=== PATIENT | female | born 1985 | race Caucasian/White ===

== ENCOUNTER 2017-08-01 19:07 | Observation (INO) | payer SELFPAY ==
[~2017-08-01] VITALS: Ht 162.6 cm; Wt 83.5 kg
[~2017-08-01 19:07] MED LIST: ONDANSETRON HCL 4 MG/2 ML VIAL IV PUSH ONE; PROPOFOL 200 MG/20 ML AMP IV ONE; Z.0.NO CURRENT MEDS
[2017-08-01 19:33] VITALS: BP 157/89; PULSE 79; RESP 18; TEMP 98.6; O2SAT 99
[2017-08-01 20:24] LABS: BLOOD, URINE LARGE (NEG); GLUCOSE,URINE NEG (NEG); KETONE, URINE 15 mg/dL (NEG); NITRITE,URINE NEG (NEG)
[2017-08-01 20:42] LABS: METHOD OF COLLECTION CLEAN CATCH
[2017-08-01 20:43] LABS: URINE COLOR YELLOW (YELLW/STRAW)
[2017-08-01 20:44] LABS: COMMENT (UR) CULT NOT INDICATED; CULTURE IF INDICATED CULT NOT INDICATED; WBC, URINE 0-2 /hpf (0-5)
[2017-08-01] MEDS ORDERED: SODIUM CHLOR 0.9% 1000 ML INJ 1,000 ML IV SCH (21:51)
--- NOTE | 2017-08-01 21:56 | PD ---
HPI . Right-sided abdominal pain Chief Complaint: Complaint Time Seen by Provider: 21:48 Travel History International Travel<30 days: No Contact w/Intl Traveler<30days: No Traveled to known affect area: No History of Present Illness HPI Patient presents with a chief complaint of right-sided abdominal pain. It is associated with nausea and vomiting. It was earlier today after lunch. Pain has persisted. She rates the pain 4/10. No exacerbating or relieving factors. She has tried [id number] analgesics and Pepto-Bismol. She denies any urinary tract symptoms such as dysuria, frequency or urgency. She denies diarrhea. PFSH Past Medical History Cancer: No Cardiovascular Problems: No Diminished Hearing: No Endocrine: No Genitourinary: No Musculoskeletal: No Neurologic: No Reproductive: No Respiratory: No Immunizations Current: No Tetanus Vaccination: Unknown Influenza Vaccination: No ?: Not LMP: 07/10/17 Social History Alcohol Use: Yes (SOCIAL) Tobacco Use: Yes (1/2 PPD) Substance Use: No Allergies-Medications (Allergen,Severity, Reaction): Coded Allergies: Sulfa (Sulfonamide Antibiotics) (Verified Allergy, Unknown, Hives, ) Reported Meds & Prescriptions Reported Meds & Active Scripts Active No Active Prescriptions or Reported Medications Review of Systems Except as stated in HPI: all other systems reviewed are Neg General / Constitutional: No: Fever, Chills Gastrointestinal: Positive: Nausea, Vomiting, Abdominal Pain, No: Diarrhea Genitourinary: No: Urgency, Frequency, Dysuria, Flank Pain Physical Exam Narrative GENERAL: Awake and alert. SKIN: warm/dry. No rashes or lesions. HEAD: Normocephalic. Atraumatic. EYES: Pupils equal and round. No scleral icterus. No injection or drainage. ENT: No nasal bleeding or discharge. Mucous membranes pink and moist. NECK: Trachea midline. Full range of motion without pain.. CARDIOVASCULAR: Regular rate and rhythm. Heart sounds normal. RESPIRATORY: No accessory muscle use. Clear to auscultation. Breath sounds equal bilaterally. GASTROINTESTINAL: Abdomen soft. I was able to elicit some tenderness under the right rib. She also has tenderness in the right lower quadrant. She does not have any CVA tenderness. Bowel sounds present. Nondistended. MUSCULOSKELETAL: No obvious deformities. NEUROLOGICAL: Awake and alert. No obvious cranial nerve deficits. Motor grossly within normal limits. Normal speech. PSYCHIATRIC: Appropriate mood and affect; insight and judgment normal. Data Data Last Documented VS Vital Signs Date Time Temp Pulse Resp B/P (MAP) Pulse Ox O2 Delivery O2 Flow Rate FiO2 08/01/17 22:43 77 16 137/80 (99) 95 Room Air 08/01/17 19:33 98.6 Orders Orders Urinalysis - C+S If Indicated (08/01/17 19:39) Ed Urine Pregnancytest Poc (08/01/17 19:39) Ct Abd/Pel W/O Iv Contrast (08/01/17 21:04) Complete Blood Count With Diff (08/01/17 21:51) Comprehensive Metabolic Panel (08/01/17 21:51) Lipase (08/01/17 21:51) Lactic Acid (08/01/17 21:51) Iv Access Insert/Monitor (08/01/17 21:51) Morphine Inj (Morphine Inj) (08/01/17 22:00) Ondansetron Inj (Zofran Inj) (08/01/17 22:00) Sodium Chlor 0.9% 1000 Ml Inj (Ns 1000 M (08/01/17 21:51) Sodium Chloride 0.9% Flush (Ns Flush) (08/01/17 22:00) Piperacil-Tazo 3.375 Gm Premix (Zosyn 3. (08/01/17 23:00) Electrocardiogram (08/01/17 ) Admit Order (Ed Use Only) (08/01/17 23:29) Labs Laboratory Tests Test 08/01/17 19:40 08/01/17 22:25 Urine Collection Type CLEAN CATCH Urine Color YELLOW Urine Turbidity CLOUDY Urine pH 7.0 Urine Specific [place] 1.018 Urine Protein NEG mg/dL Urine Glucose (UA) NEG mg/dL Urine Ketones 15 mg/dL Urine Occult Blood LARGE Urine Nitrite NEG Urine Bilirubin NEG Urine Leukocyte Esterase NEG Urine RBC 10-14 /hpf Urine WBC 0-2 /hpf Urine Squamous Epithelial Cells 3-5 /hpf Urine Amorphous Sediment MOD Microscopic Urinalysis Comment CULT NOT INDICATED White Blood Count 23.9 TH/MM3 Red Blood Count 4.86 MIL/MM3 Hemoglobin 13.7 GM/DL Hematocrit 41.5 % Mean Corpuscular Volume 85.5 FL Mean Corpuscular Hemoglobin 28.3 PG Mean Corpuscular Hemoglobin Concent 33.1 % Red Cell Distribution Width 13.4 % Platelet Count 366 TH/MM3 Mean Platelet Volume 8.4 FL Neutrophils (%) (Auto) 95.2 % Lymphocytes (%) (Auto) 2.7 % Monocytes (%) (Auto) 0.9 % Eosinophils (%) (Auto) 0.0 % Basophils (%) (Auto) 1.2 % Neutrophils # (Auto) 22.8 TH/MM3 Lymphocytes # (Auto) 0.6 TH/MM3 Monocytes # (Auto) 0.2 TH/MM3 Eosinophils # (Auto) 0.0 TH/MM3 Basophils # (Auto) 0.3 TH/MM3 CBC Comment AUTO DIFF Differential Total Cells Counted 100 Neutrophils % (Manual) 87 % Band Neutrophils % 3 % Lymphocytes % 6 % Monocytes % 4 % Neutrophils # (Manual) 21.5 TH/MM3 Differential Comment FINAL DIFF MANUAL Platelet Estimate NORMAL Platelet Morphology Comment NORMAL Blood Urea Nitrogen 7 MG/DL Creatinine 0.66 MG/DL Random Glucose 130 MG/DL Total Protein 7.9 GM/DL Albumin 4.0 GM/DL Calcium Level 8.8 MG/DL Alkaline Phosphatase 116 U/L Aspartate Amino Transf (AST/SGOT) 9 U/L Alanine Aminotransferase (ALT/SGPT) 24 U/L Total Bilirubin 0.4 MG/DL Sodium Level 136 MEQ/L Potassium Level 3.4 MEQ/L Chloride Level 102 MEQ/L Carbon Dioxide Level 26.5 MEQ/L Anion Gap 8 MEQ/L Estimat Glomerular Filtration Rate 103 ML/MIN Lactic Acid Level 1.0 mmol/L Lipase 107 U/L [facility] Medical Decision Making Medical Screen Exam Complete: Yes Emergency Medical Condition: Yes Differential Diagnosis Differential diagnosis of flank pain includes but is not limited to kidney stone , pyelonephritis, musculoskeletal pain, PE Narrative Course This patient presents with right-sided abdominal pain. CT scan has been ordered to rule out kidney stone or appendicitis. CBC & BMP Diagram 08/01/17 22:25 Total Protein 7.9, Albumin 4.0, Calcium Level 8.8, Alkaline Phosphatase 116, Aspartate Amino Transf (AST/SGOT) 9 L, Alanine Aminotransferase (ALT/SGPT) 24, Total Bilirubin 0.4 Lactic acid level is 1.0. UA>>large blood, 10-[address]: 1. Distended appendix with early periappendiceal stranding and appendicolith at the base all suggesting early appendicitis. 2. 2.7 cm right adnexal cyst Physician Communication Physician Communication Dr. Huddleston Diagnosis Primary Impression: Appendicitis Qualified Codes: K35.3 - Acute appendicitis with localized peritonitis Admitting Information Admitting Physician Requests: Observation Scripts No Active Prescriptions or Reported Meds Condition: Stable Asha Bello MD Aug 01, 2017 21:56
[2017-08-01] MEDS ORDERED: ONDANSETRON HCL 4 MG/2 ML VIAL IVP ONE (22:00)
[2017-08-01] MEDS ORDERED: SODIUM CHLORIDE 0.9% FLUSH 10 ML FLUSH IV FLUSH PRN (22:00)
[2017-08-01] MEDS ORDERED: MORPHINE SULFATE 4 MG/ML INJ IV PUSH ONE (22:00)
[2017-08-01 22:32] LABS: AUTOMATED NEUTROPHIL # 22.8 TH/MM3 (1.8-7.7); BASOPHIL # 0.3 TH/MM3 (0-0.2); BASOPHIL % 1.2 % (0.0-2.0); HEMATOCRIT 41.5 % (35.0-46.0); LYMPH % 2.7 % (9.0-44.0); LYMPHOCYTE # 0.6 TH/MM3 (1.0-4.8); MEAN CELL VOLUME 85.5 FL (80.0-100.0); MEAN CORPUSCULAR HEMOGLOBIN 28.3 PG (27.0-34.0); MEAN CORPUSCULAR HGB CONC 33.1 % (32.0-36.0); MONO % 0.9 % (0.0-8.0); NEUT % 95.2 % (16.0-70.0); PLATELET COUNT 366 TH/MM3 (150-450); RED BLOOD COUNT 4.86 MIL/MM3 (4.00-5.30); RED CELL DISTRIBUTION WIDTH 13.4 % (11.6-17.2); WHITE BLOOD COUNT 23.9 TH/MM3 (4.0-11.0)
[2017-08-01 22:38] LABS: HEMO FLAGS AUTO DIFF
[2017-08-01 22:40] LABS: CHLORIDE 102 MEQ/L (98-107); POTASSIUM 3.4 MEQ/L (3.5-5.1); SODIUM (NA) 136 MEQ/L (136-145)
[2017-08-01 22:43] VITALS: BP 137/80; PULSE 77; RESP 16; O2SAT 95
[2017-08-01 22:45] LABS: ANION GAP 8 MEQ/L (5-15); BICARBONATE 26.5 MEQ/L (21.0-32.0); BLOOD UREA NITROGEN 7 MG/DL (7-18)
[2017-08-01 22:47] LABS: ALT (GPT) 24 U/L (10-53)
--- NOTE | 2017-08-01 22:47 | RADRPT ---
EXAM DATE/TIME: 08/01/2017 21:53 [facility] COMPARISON: No previous studies available for comparison. INDICATIONS : Right flank pain with nausea and vomiting. ORAL CONTRAST: No oral contrast ingested. RADIATION DOSE: 21.57 CTDIvol (mGy) MEDICAL HISTORY : Renal calculi. SURGICAL HISTORY : None. ENCOUNTER: Initial ACUITY: 1 day PAIN SCALE: 4/10 LOCATION: Right flank TECHNIQUE: Volumetric scanning of the abdomen and pelvis was performed. Using automated exposure control and ad justment of the mA and/or kV according to patient size, radiation dose was kept as low as reasonably achievable to obtain optimal diagnostic quality images. DICOM format image data is available electro nically for review and comparison. FINDINGS: LOWER LUNGS: The visualized lower lungs are clear. LIVER: Homogeneous density without lesion. There is no dilation of the biliary tree. No calcified gallston es. SPLEEN: Normal size without lesion. PANCREAS: Within normal limits. KIDNEYS: Normal in size and shape. There is no mass, stone, or hydronephrosis. ADRENAL GLANDS: Within normal limits. VASCULAR: There is no aortic aneurysm. BOWEL/MESENTERY: The appendix is distended measuring 1.2 cm in diameter. No appendicolith is seen at the base of the a ppendix. Minimal periappendiceal stranding is seen at the tip of the appendix. The stomach, small bow el, and colon demonstrate no acute abnormality. There is no free intraperitoneal air or fluid. ABDOMINAL WALL: Within normal limits. RETROPERITONEUM: There is no lymphadenopathy. BLADDER: No wall thickening or mass. REPRODUCTIVE: A 2.7 cm cyst is identified in the right adnexa. Within normal limits. INGUINAL: There is no lymphadenopathy or hernia. MUSCULOSKELETAL: Within normal limits for patient age. CONCLUSION: 1. Distended appendix with early periappendiceal stranding and appendicolith at the base all suggesti ng early appendicitis. 2. 2.7 cm right adnexal cyst Judson Haq MD on August 01, 2017 at 22:40 Board Certified Radiologist. This report was verified electronically.
[2017-08-01 22:48] LABS: AST (GOT) 9 U/L (15-37); GLOMERULAR FILTRATION RATE 103 ML/MIN (>89)
[2017-08-01 22:49] LABS: TOTAL BILIRUBIN ADULT 0.4 MG/DL (0.2-1.0)
[2017-08-01 22:50] LABS: ALKALINE PHOSPHATASE 116 U/L (45-117)
[2017-08-01 22:58] LABS: BANDS 3 % (0-6); NEUTROPHIL # MANUAL DIFF 21.5 TH/MM3 (1.8-7.7); POLYS (SEG NEUTROPHILS) 87 % (16-70); WBC DIFF SAMPLE 100
[2017-08-01 23:00] LABS: PLATELET ESTIMATE SMEAR NORMAL (NORMAL); PLATELET MORPHOLOGY NORMAL (NORMAL); SCAN/DIFF FINAL DIFF MANUAL
[2017-08-01] MEDS ORDERED: PIPERACIL-TAZO 3.375 GM PREMIX 50 ML IV ONE (23:00)
[2017-08-01] MEDS ORDERED: BUPIVACAINE/EPINEPHRINE 0.5% 50 ML VIAL ONE (23:37)
[2017-08-01] MEDS ORDERED: METOPROLOL TARTRATE 25 MG TAB PO PRN (23:45)
[2017-08-01] MEDS ORDERED: INSULIN HUMAN REGULAR 1,000 UNITS/10 ML VIAL SQ PRN (23:45)
[2017-08-01] MEDS ORDERED: LACTATED RINGER'S 1000 ML IV PRN (23:45)
[2017-08-01] MEDS ORDERED: SODIUM CHLORID 0.9% 500 ML IV PRN (23:45)
[2017-08-01] MEDS ORDERED: POVIDONE IODINE 5% (ANTISEPSIS KIT) 4 APPLICATIONS EACH NARE PRN (23:45)
[2017-08-01] MEDS ORDERED: CHLORHEXIDINE GLUCONATE 2 % 1 PACK (2 CLOTHS) TOPICAL PRN (23:45)
[2017-08-02] MEDS: SODIUM CHLOR 0.9% 1000 ML INJ 1,000 ML IV SCH ×2 (00:40→02:00)
[2017-08-02] MEDS ORDERED: ACETAMINOPHEN/HYDROcodone 325 MG/5 MG TAB PO PRN ×2 (00:45)
[2017-08-02] MEDS ORDERED: SODIUM CHLORIDE 0.9% FLUSH 10 ML FLUSH IV FLUSH PRN (00:45)
[2017-08-02] MEDS ORDERED: ONDANSETRON HCL 4 MG/2 ML VIAL IV PUSH PRN (00:45)
[2017-08-02] MEDS ORDERED: diphenhydrAMINE HCL 25 MG CAP PO PRN (00:45)
[2017-08-02] MEDS ORDERED: KETOROLAC TROMETHAMINE 30 MG/ML (IVP) VIAL IVP PRN (00:45)
[2017-08-02] MEDS ORDERED: MORPHINE SULFATE 4 MG/ML INJ IV PUSH PRN (00:45)
[2017-08-02] MEDS: SODIUM CHLORIDE 0.9% FLUSH 10 ML FLUSH IV FLUSH SCH ×2 (00:45→08:19)
[2017-08-02] MEDS ORDERED: Post-op Orders (for Pharmacy) MISC XX ONE (00:45)
[2017-08-02] MEDS ORDERED: *MEPERIDINE 25 MG INJ VIAL PERIprocedural Use ONLY ONE (00:54)
[2017-08-02] MEDS ORDERED: MORPHINE SULFATE 2 MG/ML INJ ONE (01:03)
[2017-08-02] MEDS ORDERED: HYDROmorphone HCL PF 1 MG/ML VIAL ONE (01:21)
[2017-08-02 02:15] VITALS: BP 130/82; PULSE 82; RESP 18; TEMP 98.7; O2SAT 94
[2017-08-02 04:00] VITALS: BP 114/63; PULSE 78; RESP 16; TEMP 97.6; O2SAT 96
--- NOTE | 2017-08-02 05:52 | MH ---
cc: ALTAGRACIA BARRETT DATE OF ADMISSION: 08/01/2017 CHIEF COMPLAINT Acute appendicitis HISTORY OF PRESENT ILLNESS The patient is a 32-year-old female who presented to [facility] with 12 hours of increasing right lower quadrant pain, nausea and vomiting. The patient states she has never had pain like this before which is 7/10, constant, nonradiating pain associated with vomiting. The patient has no diarrhea, constipation, fevers, chills or night sweats. The patient underwent evaluation including CT scan which showed possible early appendicitis on the CT scan. The patient also had elevated leukocytosis. The patient was placed on antibiotics. General surgery was consulted for evaluation. REVIEW OF SYSTEMS: 12 point review of systems was conducted with the patient and is negative except for the pertinent positives mentioned above in the history of present illness. PAST MEDICAL HISTORY: None. PAST SURGICAL HISTORY None. ALLERGIES SULFA HOME MEDICATIONS: None. SOCIAL HISTORY: The patient occasionally uses alcohol, smokes half-pack cigarettes per day. Denies illicit drug use. FAMILY HISTORY: Noncontributory. PHYSICAL EXAMINATION: Vital signs: The temperature 98.6, pulse 77, blood pressure 137/80. General: The patient is an overweight female, no acute distress. Head: Normocephalic, atraumatic. Pupils round and reactive to light and accommodation. Sclera is anicteric. Mucous membranes are moist. Airway is patent. Neck: Supple. No JVD. Lungs: Clear to auscultation bilaterally. Normal breathing pattern. Heart: Regular rhythm. PMI is nondisplaced. Abdomen: Soft, tender to palpation in the right lower quadrant with focal peritonitis, without rebound tenderness. Normal bowel sounds. No surgical scars, no hernias. Extremities: No clubbing, cyanosis or edema. Neurologic: The patient is alert and oriented x 3. Nonfocal peripheral exam, cranial nerves II-XII. LABORATORY VALUES: Leukocytosis is 23, otherwise unremarkable laboratory values. ASSESSMENT AND PLAN: The patient is a 32-year-old female with acute appendicitis. Discussed the treatment options with the patient and her mom including the risks, benefits and alternatives to laparoscopic appendectomy. We recommended proceeding with laparoscopic appendectomy and they are in agreement with the procedure. Will perform this surgery as soon as possible based on surgery availability. Will keep the patient n.p.o. Will give IV antibiotics, analgesics and IV fluids. MD FAUSTO Prado/AVERY /12:46 AM /5:33 AM
--- NOTE | 2017-08-02 07:31 | EKG ---
Date Performed: 08/01/2017 Time Performed: 23:18:18 PTAGE: 32 years EKG: SINUS BRADYCARDIA WITH SINUS ARRHYTHMIA POSSIBLE RIGHT VENTRICULAR CONDUCTION DELAY BORDERL INE ECG NO PREVIOUS TRACING DOCTOR: Anjum Calero Interpretating Date/Time 08/02/2017 07:30:31
[2017-08-02 08:00] VITALS: BP 112/69; PULSE 67; RESP 15; TEMP 97.4; O2SAT 98
--- NOTE | 2017-08-02 11:04 | MP ---
cc: ALTAGRACIA BARRETT DATE OF SURGERY: 08/02/2017 PREOPERATIVE DIAGNOSIS: Acute appendicitis. POSTOPERATIVE DIAGNOSIS: Acute early appendicitis. SURGEON: Dr. Barrett. [employer] OPERATOR: Staff. PROCEDURE Laparoscopic appendectomy. ANESTHESIA General and local anesthetic BLOOD LOSS Less than 10 cc COMPLICATIONS: None. FINDINGS: Mildly dilated and injected appendix with no evidence of gangrene, rupture, and no evidence of peritonitis. No other intra-abdominal pathology. INDICATIONS FOR PROCEDURE: The patient is a 32-year-old female with 12 hours of right lower quadrant pain and CT scan concerning for early appendicitis. Risks, benefits, alternatives to laparoscopic appendectomy for treatment of possible appendicitis was discussed with the patient and the patient agreed to undergo the procedure. PROCEDURE: The patient taken to the operating room placed in supine position, placed under general endotracheal anesthesia. The patient's abdomen was prepped and draped in sterile fashion. Time-out was performed. The patient's abdomen was entered through Lentz direct cutdown technique. We made in curvilinear incision below the umbilicus with a 15 blade scalpel. Dissected down to the subcu tissue with a hemostat opened the midline fascia with a hemostat spreading between the fibers. We entered the abdomen bluntly with S retractors and placed a 10 millimeter balloon trocar into the abdomen. We insufflated the abdomen and placed a 5 mm 30 degree camera. We surveyed the abdomen with no evidence of any intra-abdominal pathology on diagnostic laparoscopy and there is no evidence of any complication from our entry. We then placed two 5 millimeter ports, one was in the suprapubic position, one was in left lower quadrant under direct visualization with the laparoscope. Local anesthetic was used at all port sites. We then were able to easily identify the cecum and the base of the appendix. We were able to make a window at the base of the appendix and dissect this away from the surrounding retroperitoneal tissue quite easily. We noted that actually the appendiceal mesentery was quite thin and small, and we were actually able to quite easily divide the base of the appendix and the appendiceal mesentery with a single white load on the GI Tuttle type stapler. We then removed the appendix from the abdomen with the EndoCatch bag through the periumbilical port. We then noted the staple line was intact. No bleeding, no evidence of leak. We relocated the omentum to the right lower quadrant. We removed all ports under visualization with the laparoscope and expressed pneumoperitoneum. We closed the Lentz entry with [id number] Vicryl suture. We closed the skin with 4-0 Monocryl and Dermabond. The patient was then discontinued from anesthesia and taken to the PACU in stable condition. The patient tolerated the procedure well. No apparent complications. All counts were correct. MD FAUSTO Prado/AVERY /12:50 AM /10:20 AM
== END 2017-08-02 10:30 | disposition home or self-care (01) ==
LOC: PHED 19:07 → PHEDA 23:31 → PH3A 08-02 02:00
PROVIDERS: ADMIT Surgery; ATTEND Surgery
DX: K35.80 Unspecified acute appendicitis (principal); F17.210 Nicotine dependence, cigarettes, uncomplicated; K66.8 Other specified disorders of peritoneum; R00.1 Bradycardia, unspecified
CPT/HCPCS: 00840; 44970; 74176; 80053; 81001; 83605; 83690; 84703; 85007; 85027; 88304; 93005; 96361; 96365; 96375; 96376; 99285; G0378; J1170; J1885; J2175; J2270; J2405; J2543; J3010; J7030